=== PATIENT | female | born 1965 | race Caucasian/White ===

== ENCOUNTER 2017-05-31 15:38 | Outpatient (CLI) | payer BC ==
--- NOTE | 2017-05-31 16:14 | RAD ---
SEVEN VIEWS LUMBAR SPINE 05/31/17 HISTORY: Low back stiffness for the past month. History of back injections last week. COMPARISON: None available. FINDINGS: There are five nonribbearing lumbar type vertebral bodies. There is narrowing of the L5-S1 disc space with mild end plate degenerative changes. A few scattered minimal osteophytes are seen within the jannet mbar spine. The vertebral body heights are within normal limits. There is no fracture or subluxation identified. There is no abnormal translational motion seen between flexion and extension views. IMPRESSION: 1. Mild degenerative changes in the lumbar spine. 2. No fracture or subluxation is present. POS: [facility]
== END 2017-05-31 15:39 | disposition home or self-care (01) ==
LOC: SCSRAD 15:38
PROVIDERS: ATTEND Internal Medicine Rheumatology
DX: M46.97 Unspecified inflammatory spondylopathy, lumbosacral region (principal); M47.816 Spondylosis without myelopathy or radiculopathy, lumbar region
CPT/HCPCS: 72100

== ENCOUNTER 2018-06-20 08:21 | Outpatient (CLI) | payer BC ==
--- NOTE | 2018-06-20 09:23 | RAD ---
PA AND LATERAL CHEST RADIOGRAPH: Date: 06-20-18 History: Cough for months. Comparison: None available. FINDINGS: Cardiac silhouette and pulmonary vasculature are within normal limits. The lungs are clear. Osseous s tructures are intact. IMPRESSION: No acute cardiopulmonary process. POS: [facility]
== END 2018-06-20 08:22 | disposition home or self-care (01) ==
LOC: SCSRAD 08:21
PROVIDERS: ATTEND Internal Medicine Gastroenterology
DX: R05 Cough (principal); K59.00 Constipation, unspecified; K21.9 Gastro-esophageal reflux disease without esophagitis; Z65.8 Other specified problems related to psychosocial circumstances
CPT/HCPCS: 71046

== ENCOUNTER 2023-06-17 08:17 | Outpatient (CLI) | payer BC | END 2023-06-17 08:18 | disposition home or self-care (01) | LOC: SCSRAD 08:17 | PROVIDERS: ATTEND Otolaryngology | DX: R05.3 Chronic cough (principal) | CPT/HCPCS: 71046 ==